=== PATIENT | male | born 1960 | race American Indian/Alaskan Native ===

== ENCOUNTER 2017-10-09 16:32 | Emergency (ER) | payer MEDICARE ==
[2017-10-09 16:42] VITALS: BP 171/103
[2017-10-09 21:58] LABS: Basophils # (Auto) 0.1 K/mm3 (0.0-0.1); Basophils % (Auto) 1.1 % (0.0-1.8); Eosinophils # (Auto) 0.7 K/mm3 (0.0-0.4); Eosinophils % (Auto) 9.1 % (0.0-4.3); Hematocrit 37.9 % (35.5-45.6); Hemoglobin 12.9 gm/dl (11.8-15.2); Lymphocytes # (Auto) 2.2 K/mm3 (1.2-5.4); Lymphocytes % (Auto) 28.7 % (13.4-35.0); Mean Corpuscular HGB Conc 34 % (32-34); Mean Corpuscular Hemoglobin 34 pg (28-32); Mean Corpuscular Volume 101 fl (84-94); Monocytes # (Auto) 0.6 K/mm3 (0.0-0.8); Platelet Count 274 K/mm3 (140-440); Red Blood Count 3.76 M/mm3 (3.65-5.03)
[2017-10-09 22:07] LABS: BUN/Creatinine Ratio 16; Blood Urea Nitrogen 13 mg/dL (9-20); Calcium 9.3 mg/dL (8.4-10.2); Hemolysis Index 11
[2017-10-09 22:37] LABS: HDL Cholesterol 74 mg/dL (40-59); LDL Cholesterol,Direct 175 mg/dL (50-130)
== END 2017-10-09 19:20 | disposition left against medical advice (07) ==
LOC: ED 16:32
DX: R07.9 Chest pain, unspecified (principal); Z53.21 Procedure and treatment not carried out due to patient leaving prior to being seen by health care provider
CPT/HCPCS: 36415; 80048; 80061; 84484; 85025